=== PATIENT | male | born 1950 | race Caucasian/White ===

== ENCOUNTER 2018-03-01 06:00 | Day surgery (SDC) | payer OTHER ==
[~2018-03-01] VITALS: Ht 185.4 cm; Wt 147.7 kg
[~2018-03-01 06:00] MED LIST: EZET1TAB61 PO; METF10002 PO; TERA2CAP3 PO; VALS80TA3 PO; VIT1TABL32 PO
[2018-03-01] MEDS ORDERED: LACTATED RINGERS 1,000 ML IV SCH (06:41)
[2018-03-01 06:42] VITALS: BP 148/84
[2018-03-01] MEDS ORDERED: LIDOCAINE-MPF 1%, 2ML INFIL ONE (07:00)
[2018-03-01] MEDS ORDERED: ONDANSETRON ODT 8 MG PO ONE (07:30)
[2018-03-01] MEDS ORDERED: GABAPENTIN 300 MG CAPSULE PO ONE (07:30)
[2018-03-01] MEDS ORDERED: ACETAMINOPHEN 500 MG TABLET PO ONE (07:30)
[2018-03-01] MEDS ORDERED: FENTANYL PF 100 MCG/2ML ONE (07:45)
[2018-03-01] MEDS ORDERED: MIDAZOLAM 1 MG/ML, 2ML ONE (07:45)
[2018-03-01] MEDS ORDERED: PHENYLEPHRINE 10 MG/ML ONE (07:59)
[2018-03-01] MEDS ORDERED: LIDOCAINE GEL 2%, 5ML ONE (08:05)
[2018-03-01] MEDS ORDERED: EPHEDRINE 50 MG/ML, 1ML ONE (08:37)
[2018-03-01] MEDS ORDERED: DEXAMETHASONE 4 MG/ML, 1ML ONE (08:49)
[2018-03-01] MEDS ORDERED: ONDANSETRON 2MG/ML, 2ML ONE (08:49)
[2018-03-01] MEDS ORDERED: SUCCINYLCHOLINE 20 MG/ML, 10ML ONE (08:49)
[2018-03-01] MEDS ORDERED: PROPOFOL 10 MG/ML, 20ML ONE (08:49)
[2018-03-01] MEDS ORDERED: CEFAZOLIN 1,000 MG ONE (08:49)
[2018-03-01 09:24] LABS: 10MIN %DROP IOPTH 82 %; 5MIN %DROP IOPTH 70 %; IOPTH BASELINE 83 pg/mL
[2018-03-01] MEDS ORDERED: ONDANSETRON ODT 8 MG ONE (09:50)
[2018-03-01] MEDS ORDERED: OXYcodone 5 MG/5 ML ORAL.SOL UDC PO PRN (10:00)
[2018-03-01] MEDS ORDERED: MEPERIDINE/PF 25MG/0.5ML IVPush PRN (10:00)
[2018-03-01] MEDS ORDERED: MORPHINE SULFATE 4 MG/ML, 1ML IVPush PRN (10:00)
[2018-03-01] MEDS ORDERED: LABETALOL 5MG/ML, 20ML IV PRN (10:00)
[2018-03-01] MEDS ORDERED: ALBUTEROL/IPRATROPIUM 2.5MG/0.5MG, 3 ML NPPB PRN (10:00)
[2018-03-01] MEDS ORDERED: HYDROmorphone 1 MG/ML, 1ML IV PRN (10:00)
[2018-03-01] MEDS ORDERED: MIDAZOLAM 1 MG/ML, 2ML IV PRN (10:00)
[2018-03-01] MEDS ORDERED: ONDANSETRON ODT 8 MG PO PRN (10:00)
[2018-03-01] MEDS ORDERED: hydrALAzine 20 MG/ML, 1ML IV PRN (10:00)
[2018-03-01] MEDS ORDERED: PROMETHAZINE 25 MG/ML, 1ML IV PRN (10:00)
[2018-03-01] MEDS ORDERED: FENTANYL PF 100 MCG/2ML IV PRN (10:00)
[2018-03-01] MEDS ORDERED: OXYcodone 5 MG/5 ML ORAL.SOL UDC ONE (10:20)
== END 2018-03-01 12:45 ==
LOC: OUT 06:00
PROVIDERS: ATTEND Surgery
DX: E21.0 Primary hyperparathyroidism (principal); E11.9 Type 2 diabetes mellitus without complications; I10 Essential (primary) hypertension; E78.5 Hyperlipidemia, unspecified; N40.0 Benign prostatic hyperplasia without lower urinary tract symptoms; E66.01 Morbid (severe) obesity due to excess calories; Z90.49 Acquired absence of other specified parts of digestive tract; Z98.890 Other specified postprocedural states
CPT/HCPCS: 60500; 82962; 83970; 88305; 88331; C1760; J0330; J0690; J1100; J2250; J2370; J2405; J2704; J3010; J7120; Q0162

== ENCOUNTER → 2018-10-13 | Outpatient (CLI) | payer OTHER ==
[~2018-10-13] MED LIST changes: -METF10002 PO; +METF10007 PO
== END | disposition home or self-care (01) ==
LOC: CFH 08:34
PROVIDERS: ATTEND Internal Medicine Endocrinology, Diabetes & Metabolism
DX: E04.2 Nontoxic multinodular goiter (principal); I10 Essential (primary) hypertension
CPT/HCPCS: 76536